=== PATIENT | female | born 1970 | race African-American/Black ===

== ENCOUNTER 2019-09-27 08:00 | Outpatient (RCR) | payer OTHER, SELFPAY ==
[2019-07-31 08:15] VITALS: BMI 31.3
[2019-07-31 08:24] VITALS: BMI 31.3
== END 2019-10-29 23:59 | disposition home or self-care (01) ==
LOC: ANHDMC 08:00
PROVIDERS: Visit Provider Family Medicine
DX: E66.9 Obesity, unspecified (principal); Z71.3 Dietary counseling and surveillance
CPT/HCPCS: 97802

== ENCOUNTER 2025-05-23 07:43 | Outpatient (CLI) | payer BC, SELFPAY ==
--- NOTE | ~2025-05-23 | DEXA_ITS ---
Bone Density Report Name: QUYEN BATRES Age: 54 Sex: Female Ethnicity: White Date of : 1970 Indication: postmenopausal; screening for osteoporosis; hysterectomy; Referring Provider: BRAD, CHLOÉ [place] Study: Bone densitometry was performed. Exam Date: May 23, 2025 Accession number: [id number] Bone Density: Region BMD T-score Z-score Classification AP Spine(L1-L4) 1.131 0.8 1.8 Normal Femoral Neck (Left) 0.972 1.1 2.2 Normal Total Hip (Left) 1.124 1.5 2.2 Normal Femoral Neck (Right) 0.978 1.2 2.2 Normal Total Hip (Right) 1.105 1.3 2.0 Normal Total Hip Mean 1.115 1.4 2.1 Normal World Health Organization criteria for BMD impression classify patients as: Normal (T-score at or above -1.0), Osteopenia (T-score between -1.0 and -2.5), or Osteoporosis (T-score at or below -2.5). 10-year Fracture Risk: FRAX not reported because: All T-scores for Spine Total, Hip Total, Femoral Neck at or above -1.0 Clinical Information Provided by Patient: Has used the following medications: Vitamin D Has the following medical conditions: Hysterectomy Patient maximum height was 70 Menopause Age: 36 No regular weight bearing exercise Does not regularly consume dairy products Onset of menses at age 13 Number of children 1 Impression: The patient has normal bone mass. Discussion: BONE DENSITY IS ABOVE THE MINIMUM DESIRABLE LEVEL AT ALL SKELETAL SITES TESTED. This patient?s bone mineral density is above the minimum desirable level (T-score -1.0 or better) at all sites measured. The patient should follow a healthful lifestyle (good nutrition with adequate calcium and vitamin D, and appropriate weight-bearing exercise). Follow-Up: Consider repeating this study in 5 years or sooner if there is some new clinical indication. Reported by: SCOTT on 05/23/2025 8:12:00 AM. Reviewed, dictated and finalized at location A.
== END 2025-05-23 07:44 | disposition home or self-care (01) ==
LOC: MICIMG 07:44
PROVIDERS: PCP Family Medicine; Visit Provider Nurse Practitioner Family
DX: Z13.820 Encounter for screening for osteoporosis (principal)
CPT/HCPCS: 77080

== ENCOUNTER 2025-06-13 08:45 | Outpatient (CLI) | payer BC, SELFPAY ==
--- NOTE | ~2025-06-13 | XR_ITS ---
EXAMINATION: XR small bowel follow through DATE: 06/13/2025 11:45 INDICATION: Ulcer of the intestines. Inflammation. 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 Oral contrast was administered, and sequential radiographs of the abdomen were obtained until oral contrast was noted to be in the proximal colon. Spot fluoroscopic images of the small bowel were obtained. Fluoroscopy exposure time was 2.5 minutes. A total of 23 fluoroscopic images and 14 overhead radiographs were obtained. Total DAP was 319.419 Gycm^2. COMPARISON: None. FINDINGS: Transit time from the stomach to cecum was approximately 1.5 hours. On the 1 hour images there appears to be early filling of the proximal transverse colon with some irregular Y-shaped tract of contrast appearing to extend between the proximal transverse colon and a loop of proximal ileum highly suspicious for a enterocolic fistula. There is mild narrowing of the distalmost terminal ileum which persists on multiple images. There is normal caliber and mucosal fold pattern throughout the small bowel. IMPRESSION: 1. 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 Constellation of findings raises concern for sequela of Crohn's disease. Reviewed, dictated and finalized at location A. IMPRESSION: 1. 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 Constellati on of findings raises concern for sequela of Crohn's disease.
--- OUTSIDE RECORDS SUMMARY | 2025-06-13 08:58 | XMS_ITS | Clinical Summary ---
Author Organization [facility] Address [address] [place] [address] Care Team Providers Care Assistant Foreman Name Role Phone Ben Tao MD Primary Care Provider [phone] Allergies No known active allergies Medications losartan 50 MG tablet Take 50 mg by mouth daily. Active amLODIPine (NORVASC) 2.5 MG tablet Take 1 tablet (2.5 mg total) by mouth every morning. 10/12/2022 Active Immunizations Immunization Administration Dates Next Due Tdap (Boostrix) 03/08/2020 Family History Medical History Relation Comments Diabetes Father Heart Disease Father Heart Disease Mother Relation Status Comments Father Mother Social History Tobacco Use Types Packs/Day Years Used Date Smoking Tobacco: Never Smokeless Tobacco: Never Alcohol Use Standard Drinks/Week Comments Yes 0 (1 standard drink = 0.6 oz pur e alcohol) Comments No Sex and Gender Information Value Date Recorded Sex Assigned at Not on file Legal Sex Female 7:44 PM CDT Gender Identity Not on file Sexual Orientation Not on file Last Filed Vital Signs Vital Sign Reading Time Taken Comments Blood Pressure 148/91 12/01/2022 9:59 AM CDT Pulse 83 12/01/2022 10:04 AM CDT Temperature 36.6 C (97.8 F) 12/01/2022 10:04 AM CDT Respiratory Rate 16 12/01/2022 9:59 AM CDT Oxygen Saturation 96% 12/01/2022 9:59 AM CDT Inhaled Oxygen Concentration - - Weight 103 kg (227 lb) 12/01/2022 10:04 AM CDT Height 177.8 cm (5' 10) 12/01/2022 10:04 AM CDT Body Mass Index 32.57 12/01/2022 10:04 AM CDT Plan of Treatment Health Maintenance Due Date Last Done Comments Colorectal Cancer Screening Colonoscopy (10 Years) 1970 Annual Physical 1973 Hepatitis C 1988 Hepatitis B Vaccines (1 of 3 - 19+ 3-dose series) 1989 Mammogram Screening 2010 Pneumococcal Vaccine: 50+ Years (1 of 1 - PCV) 2020 Zoster Vaccines (1 of 2) 2020 COVID-19 Vaccine (4 - 2024-2 6 season) 2025 06/13/2021, 11/28/2020, 11/06/2020 Influenza Adult (#1) 2025 DTaP, Tdap and Td Vaccines ( 2 - Td or Tdap) 03/08/2030 03/08/2020 Hepatitis A Vaccines Aged Out No long er eligible based on patient's age to complete this topic Meningococcal B Vaccine Aged Out No l onger eligible based on patient's age to complete this topic Meningococcal Vaccine Aged Out No estefany ellyn eligible based on patient's age to complete this topic RSV Immunizations Under 20 Months Aged Out No longer eligible b ased on patient's age to complete this topic Insurance Advance Directives Documents on File Type Date Recorded 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
--- OUTSIDE RECORDS SUMMARY | 2025-06-13 08:58 | XMS_ITS | Encounter Summary ---
Author Organization [facility] Address [address] [place] [address] Phone Care Team Providers Care Merchandise Flow Associate Name Role Phone Ben Tao MD Primary Care Provider Gunnar Villeda MD Unavailable [phone] Encounter Details Date Type Department Care Team (Late st Contact Info) Description 02/12/2022 Orders Only GONZALEZ OS PMR [phone] Scanning, Provider Social History Tobacco Use Types Packs/Day Years Used Date Smoking Tobacco: Never Smokeless Tobacco: Never Comments No Sex and Gender Information Value Date Recorded Sex Assigned at Not on file 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 Gender Identity Female 12/19/2019 7:52 PM CDT Sexual Orientation Straight 12/19/2019 8: 00 PM CDT documented as of this encounter Plan of Treatment Not on file documented as of this encounter Procedures Procedure Name Priority Date/Time Associated Diagnosis Comments SCAN - RADIOLOGY/IMAGING 02/12/2022 documented in this encounter Results * SCAN - RADIOLOGY/IMAGING (02/12/2022) Anatomical Region Laterality Modality Other us Provider Scanning Final Result documented in this encounter Visit Diagnoses Not on filedocumented in this encounter Care Teams Merchandise Flow Associate Relationship Specialty Start Date End Date Ben Tao MD PCP - General 08/01/19 Gunnar Villeda MD [address] [facility] [address] [place] [address] 08/01/19 documented as of this encounter
--- OUTSIDE RECORDS SUMMARY | 2025-06-13 08:59 | XMS_ITS | Data Portability ---
Author Organization [facility] Address [address] [place] [address] Care Team Providers Care Senior Tax Manager Name Role Phone GEN NIXON Primary Care Provider [phone] Assessment Encounter Date Assessment Date Assessment LastModified by Organization Details LastModified Time 07/23/2022 07/23/2022 Annual gynecological exam performed. Patient will come back in a year unless there are new symptoms. Not available 07/23/2022 14:49:59 01/21/2023 01/21/2023 Annual gynecological exam performed. Patient will come back in a year unless there are new symptoms. Not available 01/21/2023 10:36:26 Plan of Treatment Reminders Order Date Submit Date Provider Last Modified By Organization Details Last Modified Time Details Appointments None recorded. Lab None recorded. Referral None recorded. Procedures None recorded. Surgeries None recorded. Imaging None recorded. Medication Orders estradiol 1 mg tablet 2021 022 [id number], [address], [place], [id number], 15:32:26 Patient TargetsNo targets recorded. Patient InstructionsNo instructions recorded. Reason for Referral None Reported. Results Created Date Observation Date Name Description Value Unit Range Abnormal Flag Note LastModifiedBy Organization Detail LastModifiedTime 07/23/20 22 07/23/2022 VITAM IN D, 25-OH (TOTA L D2/D3 ) vitamin D, 25-hydroxy, total 24.8 NG/mL 30.0-1 00.0 low Sugge stive of Defic iency : <20 ng/mL Sugge stive of Insuf ficie ncy: 20-29 ng/mL Sugge stive of Suffi cienc y: 30-10 0 ng/mL Sugge stive of Toxic ity: >150 ng/mL Not Available [facility] ([facility]) [address], [place], [address], 07/24/2022 04:13:13 07/23/20 22 07/23/2022 IMAGE GUIDE D PAP AND HPV REGAR DLESS image guided Pap, HPV regardless of Pap result SEE RESULT S BELOW CASE REPOR T: Cytol ogy Gynec ologi gisella Repor t Case: [id number] Autho avery jimenez Provi essie: Sathya Fung MD Colle cted: 07/23 1629 Order ing Locat ion: [place] [facility] Recei colin: 07/24 0019 First Scree n: Susi Adamson Speci men: Scree cele Pap - Image d, Vagin a STATE MENT OF ADEQU ACY: Satis facto ry for evalu ation FINAL DIAGN OSIS: Negat deo for Intra epith elial Annita ruggiero or Claudia izquierdo (NIL) . Elect agustina jorge larry d by Susi Adamson on 2021 at 3:19 PM ----- ----- ----- ----- ----- ----- ----- ----- ----- ----- ----- ----- ----- ----- ----- ----- ----- ---- HPV RESUL TS: HPV mRNA E6/E7 : No HPV mRNA Detec consuelo NOTE: This high risk HPV mRNA assay detec ts fourt een high- risk HPV types (16, 18, 31, 33, 35, 39, 45, 51, 52, 56, 58, 59, 66, 68) witho ut diffe renti ation . COMME NT: Note: This speci men was revie wed by a Cytot echno logis t and/o r Patho logis t (as indic ated in this repor t) after evalu ation using the Thinp rep Imagi ng Syste m. CLINI GISELLA INFOR MATIO N: Menst rual Statu s: LMP (if appli cable ): Clini gisella Histo ry/Pr eviou s Pap: Type of Neopl jet (if appli cable ): Signi fican t Clini gisella Findi ngs: Other Histo ry: Hormo jordyn (if appli cable ): PAP EDUCA CHRISTELLE L NOTE: The Pap Test is a scree cele test with an inher ent false negat deo rate. Liqui d-bas ed sampl ing may decre ase, but will not elimi aries, false negat deo resul ts. A negat deo resul t does not precl ude the prese nce and/o r devel opmen t of disea se, since the prese nce of abnor mal cells in the sampl e depen ds on the locat ion of the lesio n and sampl ing techn ique. Luis nued regul ar scree cele is the best metho d of cance r preve ntion . If repor consuelo cytol ogic findi ng do not corre late with physi gisella and/o r histo rical findi ngs, furth er inves tigat ion is recom ligia d, as clini germaine lewis nted. Not Available [facility] ([facility]) [address], [place], [address], 07/26/2022 16:21:33 02/26/20 25 02/25/2025 MAMMO , scree cele, digit al, bilat eral No observ ation record ed. [facility] [address], [address], 03/06/2025 16:35:27 Result Notes None recorded. Procedures Surgical History Date Name Laterality Status Provider Name and Address Organization Details Recorded Time 07/23/2022 Date of Last Pap Smear completed Cailin Gomez [facility] 01/21/2023 09:26:58 Imaging Results None recorded. Procedure Notes None recorded. Medical Equipment None Reported. Allergies No known drug allergies Medications Name Sig Start Date Stop Date Status Note LastModified by Organization Details LastModified Time losartan 50 mg tablet TAKE 1 TABLET BY MOUTH EVERY DAY active Not Available Not Available No t Available cetirizin e 10 mg tablet active Not Available Not Available Not Available azithromy mandy 250 mg tablet 07/23 completed Not Available Not Available Not Available prednison e 20 mg tablet 07/23 completed Not Available Not Available Not Available amlodipin e 2.5 mg tablet TAKE 1 TABLET BY MOUTH EVERY DAY IN THE MORNING active Not Available Not Available No t Available phentermi ne 37.5 mg tablet TAKE 1 TABLET BY MOUTH ONCE DAILY IN THE MORNING active Not Available Not Available No t Available amlodipin e 5 mg tablet TAKE 1 TABLET BY MOUTH EVERY DAY IN THE MORNING active Not Available Not Available No t Available famotidin e 20 mg tablet 07/23 completed Not Available Not Available Not Available estradiol 1 mg tablet TAKE 1 TABLET BY MOUTH EVERY DAY 2023 active Not Available Not Available Not Avai lable Nortrel 0.5/35 (28) 0.5 mg-35 mcg tablet 2021 active Not Available Not Available Not Avai lable omeprazol e 20 mg capsule,d elayed release 07/23 completed Not Available Not Available Not Available monteluka st 10 mg tablet 07/23 completed Not Available Not Available Not Available ergocalci ferol (vitamin D2) 1,250 mcg (50,000 unit) capsule TAKE 1 CAPSULE BY MOUTH ONE TIME PER WEEK active Patient needs to complete lab work prior to refill! Not Available Not Available Not Available doxycycli ne hyclate 20 mg tablet 07/23 completed Not Available Not Available Not Available losartan 100 mg tablet TAKE 1 TABLET BY MOUTH EVERY DAY IN THE MORNING active Not Available Not Available No t Available BinaxNOW COVID-19 Ag Self Test kit active Not Available Not Available Not Available Vitals Date Recorded Body height Provider Name an d Address Organization Details Last Updated DateTime 01/21/2023 177.8 cm Cailin Gomez [facility] 01/21/2023 10:36:50 Date Recorded Body height Body mass index (BMI) Body weight Systolic And Diastolic Provider Name and Address Organization Details Last Updated DateTime 07/23/2022 177.8 cm 31.7 kg/m2 153299.91 g 179/101 mm[Hg] Cailin Gomez [facility] 07/23/2022 15:05:33 Social History None recorded. Functional Status None recorded. Mental Status None recorded. Family History Relationship Description Onset Age of this Age Resolved Age Notes LastModified by Organization Details LastModified Time Mother Hypertensive disorder [email or web address] Not available 2021 15:06:50 Mother Heart disease [email or web address] Not available 2021 15:07:13 Father Hypertensive disorder [email or web address] Not available 2021 15:06:50 Father Heart disease [email or web address] Not available 2021 15:07:13 Father Genetic disease [email or web address] Not available 2021 15:07:56 Brother Hypertensive disorder [email or web address] Not available 2021 15:06:50 Sister Hypertensive disorder [email or web address] Not available 2021 15:06:50 Sister Heart disease [email or web address] Not available 2021 15:07:13 Paternal Grandmother Genetic disease [email or web address] Not available 2021 15:07:56 Medical History Condition Response Allergies (Food, seasonal, environmental ) Y Hypertension Y Gynecological History Statement/Question Response Age of first menstrual cycle 12 Date of Last Pap Smear 07/23/2022 Current Control Method Hysterectom y Obstetrics History GPAL:G 2 P 1 0 1 1 Type Value Full Term 1 Induced 1 Living 1 Total 2 Past Encounters Encounter ID Performer Location Encounter Start Date Encounter Closed Date Diagnosis/Indication Diagnosis SNOMED-CT Code Diagnosis ICD10 Code Diagnosis IMO Codes Diagnosis Note [id number] Armin Fung MD [facility] [address] [address] 07/23/2022 14:33:20 07/23/2022 15:55:05 Gynecologic examination 57674485 Z01.419 Annual gynecologi gisella exam performed. Patient will come back in a year unless there are new symptoms. Suggest Calcium with Vitamin D if not eating in diet. Patient advised to get annual flu shot. Recommend yearly physicals and preform monthly breast exams. Genetic testing is available for patients with family history of cancer. Engage in safe sexual practices, use condoms. Encouraged to have daily exercise. Avoid tobacco and illicit drugs, moderation of alcohol. If BMI greater than 25 dietary consult advised. If you have any questions please call or email. Mammogram - done Colonoscop y - done Bone Density - na Cholestero l - done Pap - today [id number] Armin Fung MD [facility] [address] [address] 01/21/2023 10:23:13 01/25/2023 14:18:50 Gynecologic examination [id number] Z01.419 Z11.51 Annual gynecologi gisella exam performed. Patient will come back in a year unless there are new symptoms. Suggest Calcium with Vitamin D if not eating in diet. Patient advised to get annual flu shot. Recommend yearly physicals and preform monthly breast exams. Genetic testing is available for patients with family history of cancer. Engage in safe sexual practices, use condoms. Encouraged to have daily exercise. Avoid tobacco and illicit drugs, moderation of alcohol. If BMI greater than 25 dietary consult advised. If you have any questions please call or email. Mammogram - done Colonoscop y - done Bone Density - na Cholestero l - done Pap - today Health Concerns Section Related Observation LastModified by Organization Detai ls LastModified Time None Recorded Concern Status LastModified by Organization Details LastModified Time None Recorded Advance Directives Directive None Recorded Payers Insurance Date Sequence Insurance Name Policy Number Policy Rivero Covered Member ID Rivero Member ID Guarantor Name 01/20/2023 1 [employer] [id number] Alla Landeros [id number] Alla Tigre Notes Date Note Type Note Provider Name and Address Organization Details Recorded Time 07/23/20 22 text/htm l Annual GYNReported by PatientHistoryFor history, patient reportsno gynecologic complaints.Genitourinary symptomsFor menstrual cycle, patient reportsnormal menses. For urinary symptoms, patient reportsno hematuriaandno incontinence. For vulva, patient reportsno genital lesion. For vagina, patient reportsnormal vaginal discharge.Breast symptomsFor breast, patient reportsno breast painandno breast lump.Endocrine symptomsFor menopausal symptoms, patient reportshot flashesandinadequacy of lubrication of vaginal mucosa. For sexual complaints, patient reportsno sexual complaintsandno pain during intercourse.Psychological symptomsFor psychological symptoms, patient reportsno depressionandno anxiety.Preventative measuresFor preventive measures, patient reportsencourage self breast examinationandencourage regular exercise. Armin Fung MD [address], [place], [address], [facility] 07/23/2022 15:47:17 01/22/20 23 text/htm l Annual GYNReported by PatientGenitourinary symptomsFor menstrual cycle, patient reportsnormal menses. For urinary symptoms, patient reportsno hematuriaandno incontinence. For vulva, patient reportsno genital lesion. For vagina, patient reportsnormal vaginal discharge.Breast symptomsFor breast, patient reportsno breast pain,no breast lump, andno nipple discharge.Endocrine symptomsFor sexual complaints, patient reportsno sexual complaints,no pain during intercourse, andnormal libido. For menopausal symptoms, patient reportsno menopausal symptomsandnormal vaginal lubrication.Psychological symptomsFor psychological symptoms, patient reportsno depression,no anxiety, andno pmdd. Armin Fung MD [address], [place], [address], [facility] 01/25/2023 14:18:49 OBGyn Episode Ob Episode Information Episode Created Date Number of Fetuses Patient Bloodtype Patient rh Status Prepregnancy Weight lbs Domestic Partner Domestic Partner Phone Father Name Floral Designer Salesperson Status 07/23/20 22 1 CLOSED Fetus Data First Name Last Name Admitted to NICU Weight (g) Sex Living Outcome Pediatric Complications Fetus ID Race Codes Race Delivery Type , Induced [id number] Babatunde Calculation Initial Babatunde Date Initial Exam Date Initial Exam Provider Initial Ultrasound Date Last Menstrual Period Date Ultra Sound Weeks Gestation 0 Eighteen To Twenty Week Babatunde Update Ultra Sound Date Fundal Height At Umbil Quickening Date Ultra Sound Latest Weeks Gestation Final Babatunde Confirmed By Final Babatunde Confirmed Date Final Babatunde Date Ultra Sound Latest Days Gestation 0 0 Menstrual History Last Menstrual Date Menses Monthly On Bcp Conception Prior Menses Frequency Hcg Plus Date Menarche Onset Age Delivery Information Delivery Date Delivery Type Labor Anesthesia Weeks Gestation Incision Type Labor Labor Length Hrs Delivered By Post Complications Tubal Sterilization Discharge Date Comments 8 Discharge Information Feeding Method Contraceptive Method Maternal HG B and HCT Levels Ob Episode Information Episode Created Date Number of Fetuses Patient Bloodtype Patient rh Status Prepregnancy Weight lbs Domestic Partner Domestic Partner Phone Father Name Floral Designer Salesperson Status 07/23/20 22 1 CLOSED Fetus Data First Name Last Name Admitted to NICU Weight (g) Sex Living Outcome Pediatric Complications Fetus ID Race Codes Race Delivery Type 3288.54 2 M Full Term [id number] Vaginal Delivery Babatunde Calculation Initial Babatunde Date Initial Exam Date Initial Exam Provider Initial Ultrasound Date Last Menstrual Period Date Ultra Sound Weeks Gestation 0 Eighteen To Twenty Week Babatunde Update Ultra Sound Date Fundal Height At Umbil Quickening Date Ultra Sound Latest Weeks Gestation Final Babatunde Confirmed By Final Babatunde Confirmed Date Final Babatunde Date Ultra Sound Latest Days Gestation 0 0 Menstrual History Last Menstrual Date Menses Monthly On Bcp Conception Prior Menses Frequency Hcg Plus Date Menarche Onset Age Delivery Information Delivery Date Delivery Type Labor Anesthesia Weeks Gestation Incision Type Labor Labor Length Hrs Delivered By Post Complications Tubal Sterilization Discharge Date Comments 0 Sanya Discharge Information Feeding Method Contraceptive Method Maternal HG B and HCT Levels
--- OUTSIDE RECORDS SUMMARY | 2025-06-13 08:59 | XMS_ITS | Clinical Summary ---
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 Gender Identity Not on file Sexual Orientation Not on file Plan of Treatment Health Maintenance Due Date Last Done Comments Hepatitis C Virus (HCV) Screening 1970 Hepatitis B Immunization (1 of 3 - 19+ 3-dose series) 1989 Pap Smear 1991 Cervical Cancer Screening (CCS) 2000 HPV/Cotest 2000 Cologuard 2015 Colonoscopy 2015 Colorectal Cancer Screening 2015 Immunochemical Fecal Occult Blood 2015 Pneumococcal Immunization (5 0+ years) (1 of 1 - PCV) 2020 Zoster Immunization (1 of 2) 2020 Influenza Immunization (#1) 2025 SARS-COV-2 Immunization ( - season) 2025 Respiratory Syncytial Virus (RSV) Immunization (Adult) (1 - 1-dose 75+ series) 2045 DTaP/Tdap/Td Immunization Discontinued 03/08/2020 TdaP Immunization Completed 03/08/2020 Human Papillomavirus (HPV) Immunization Aged Out No longer eligible b ased on patient's age to complete this topic Meningococcal Immunization (ACWY) Aged Out No longer eligible based on patient's age to complete this topic Rotavirus Immunization Aged Out No lo nger eligible based on patient's age to complete this topic
--- OUTSIDE RECORDS SUMMARY | 2025-06-13 08:59 | XMS_ITS | Clinical Summary ---
Author Organization [facility] Address [address] [place] [address] Care Team Providers Care Mobile Manager Name Role Phone Ben Tao MD Primary Care Provider [phone] Gunnar Villeda MD Unavailable [phone] Allergies Active Allergy Reactions Criticality Noted Date Comments Mold Itching,Sneezing Low 12/21/2021 Medications losartan (COZAAR) 50 mg tablet Take 50 mg by mouth daily Active famotidine (PEPCID) 20 mg tablet Active doxycycline (PERIOSTAT) 20 mg tablet 10/01/2021 Active ergocalciferol (VITAMIN D) 50,000 unit capsule 11/11/2021 Active Nortrel 0.5/35, 28, 0.5-35 mg-mcg per tablet 12/13/2021 Active omeprazole (PriLOSEC) 20 mg capsule 10/02/2021 Active Active Problems Problem Noted Date Diagnosed Date Degenerative disc disease at L5-S1 level 020 Lumbar facet arthropathy 03/29/2020 HTN (hypertension) 12/24/2019 Vitamin D deficiency 12/24/2019 Stiffness in joint 12/24/2019 Greater trochanteric pain syndrome 12/24/2019 Surgical History Surgery Date Site/Laterality Comments HYSTERECTOMY 08/22/2005 - 08/21/2006 partial Family History Medical History Relation Name Comments Breast cancer Cousin Breast cancer Paternal Grandmother Relation Name Status Comments Cousin Paternal Grandmother Social History Tobacco Use Types Packs/Day Years Used Date Smoking Tobacco: Never Smokeless Tobacco: Never Comments No Sex and Gender Information Value Date Recorded Sex Assigned at Not on file Legal Sex Female 5:35 AM [employer] Gender Identity Female 12/19/2019 7:52 PM CDT Sexual Orientation Straight 12/19/2019 8: 00 PM CDT Obstetrics History Para Term AB IAB SAB Ectopic Multiple Livin g Live Births 1 1 1 Date Outcome GA Total Labor Labor/2nd/3rd Weight Sex Type Anes PTL Rupa A1 A5 Name Clin Term Last Filed Vital Signs Vital Sign Reading Time Taken Comments Blood Pressure 158/91 12/21/2021 9:38 AM CDT Pulse 106 12/21/2021 9:38 AM CDT Temperature 36.9 C (98.5 F) 12/21/2021 9:38 AM CDT Respiratory Rate - - Oxygen Saturation - - Inhaled Oxygen Concentration - - Weight 98 kg (216 lb) 12/21/2021 9:38 AM CDT Height - - Body Mass Index - - Plan of Treatment Health Maintenance Due Date Last Done Comments Colon Cancer Screening-Colonoscopy 1970 Depression Screening 1970 Hepatitis C Screening 1970 Hepatitis B Screening 1988 Regular Well Visit/Exam 18-64 1988 Zoster Vaccine (1 of 2) 2020 Influenza Vaccine (#1) 2025 Breast Cancer Screening-Mammogram 02/25/2026 02/25/2025, 02/16/2024, 01/26/2023, Additional history exists DTaP/Tdap/Td Vaccine (2 - Td or Tdap) 03/08/2030 03/08/2020 Pneumococcal vaccine <65 Aged Out No longer eligible based on patient's age to complete this topic Procedures Procedure Name Priority Date/Time Associated Diagnosis Comments SCREENING MAMMOGRAM BILATERAL W CODY Schedule Routine, Read Routine (OP Routine) 02/25/2025 11:20 AM CDT Screening mammogram, encounter for from Last 3 Months or Most Recently Relevant to Health Maintenance Results * Screening Mammogram Bilateral W [place] (02/25/2025 11:20 AM CDT) Anatomical Region Laterality Modality Breast Bilateral Mammography Impressions 02/25/2025 1:53 PM CDT Bilateral No evidence of malignancy in either breast. OVERALL BI-RADS FINAL ASSESSMENT: 1 - Negative RECOMMENDATION: Recommend bilateral annual screening mammography. Narrative 02/25/2025 1:53 PM CDT EXAMINATION: Screening Mammogram Bilateral W Cody: 02/25/2025 COMPARISON: Relevent prior studies available at the time of interpretation were reviewed, including the most recent mammogram on: 02/16/2024. TECHNIQUE: Mammography was performed with 2D and digital breast tomosynthesis (DBT) images. CAD was utilized. BREAST PARENCHYMAL COMPOSITION: The breasts are extremely dense, which lowers the sensitivity of mammography. FINDINGS: No suspicious mass, calcification, or architectural distortion is seen in either breast. There has been no suspicious interval change. us Self Screening Mammogram IMG MAMMO PROCEDURES Fi nal Result from Last 3 Months or Most Recently Relevant to Health Maintenance Insurance [employer] ACCESS CHOICE [employer] Address: [address] [place] [address] [facility] Care Teams Mobile Manager Relationship Specialty Start Date End Date Ben Tao MD PCP - General 08/01/19 Gunnar Villeda MD [address] [address] 08/01/19
== END 2025-06-13 08:46 | disposition home or self-care (01) ==
PROVIDERS: PCP Family Medicine; Visit Provider Internal Medicine Gastroenterology
DX: K63.3 Ulcer of intestine (principal); K52.9 Noninfective gastroenteritis and colitis, unspecified
CPT/HCPCS: 74250